=== PATIENT | female | born 1980 | race Caucasian/White ===

== ENCOUNTER 2017-05-09 04:32 | Emergency (ER) | payer MEDICAID | END 2017-05-09 05:15 | disposition home or self-care (01) | LOC: D.ER 04:32 | DX: K08.89 Other specified disorders of teeth and supporting structures (principal); R68.84 Jaw pain ==

== ENCOUNTER 2019-01-18 12:21 | Emergency (ER) | payer SELFPAY ==
[~2019-01-18] VITALS: Ht 160 cm; Wt 95.5 kg
[2019-01-18 12:40] VITALS: Ht 160 cm; Wt 95.5 kg
[2019-01-18] MEDS ORDERED: CORTISPORIN OTI10 M1 LEFT EAR (14:20)
[2019-01-18] MEDS ORDERED: AUGMENTIN 875-11 TAB PO (14:20)
[2019-01-18 14:37] VITALS: BP 114/74
== END 2019-01-18 14:38 | disposition home or self-care (01) ==
LOC: D.ER 12:21
DX: T63.301A Toxic effect of unspecified spider venom, accidental (unintentional), initial encounter (principal); E87.6 Hypokalemia

== ENCOUNTER 2019-01-27 10:24 | Emergency (ER) | payer SELFPAY ==
[~2019-01-27] VITALS: Ht 160 cm; Wt 94.8 kg
[~2019-01-27 10:24] MED LIST: AUGMENTIN 875-11 TAB PO; CORTISPORIN OTI10 M1 LEFT EAR
[2019-01-27 10:32] VITALS: Ht 160 cm; Wt 94.8 kg
[2019-01-27 13:06] LABS: BASOPHILS 0.2 % (0-2); EOSINOPHILS 3.2 % (0-7); HEMATOCRIT 31.6 % (36.0-48.0); HEMOGLOBIN 10.1 g/dL (12-16); IMMATURE GRANULOCYTES 0.2 % (0-5); LYMPHOCYTES 28.1 % (15-50); MCH 24.6 pg (26.0-34.0); MCV 77.1 fL (80.0-100.0); MEAN PLATELET VOLUME 9.9 fL (7.4-10.4); MONOCYTES 6.2 % (2-11); NEUTROPHILS 62.1 % (40-80); PLATELET COUNT 235 10x3/uL (130-400); RDW 14.8 % (11.5-14.5); WBC 5.6 10x3/uL (4.8-10.8)
[2019-01-27 13:18] LABS: ALBUMIN 3.3 g/dL (3.4-5.0); ALKALINE PHOSPHATASE 65 U/L (46-116); ALT (SGPT) 35 U/L (10-68); BILIRUBIN - TOTAL 0.42 mg/dL (0.2-1.3); CALC OSMOLALITY 277 mosm/kg (275-300); CALCIUM 8.4 mg/dL (8.5-10.1); CARBON DIOXIDE 25.5 mmol/L (21.0-32.0); CHLORIDE - SERUM 105 mmol/L (98-107); CREATININE - SERUM 0.5 mg/dL (0.6-1.3); GLUCOSE 86 mg/dL (74-106); POTASSIUM - SERUM 3.3 mmol/L (3.5-5.1); PROTEIN - SERUM 7.3 g/dL (6.4-8.2); SODIUM 140 mmol/L (136-145); UREA NITROGEN 12 mg/dL (7-18); eGFR NON AFRICAN AMERICAN > 90 mL/min (90-120)
[2019-01-27] MEDS ORDERED: ATARAX 25 MG TA25 MG PO (14:13)
[2019-01-27] MEDS ORDERED: TORADOL10 MG PO (14:14)
[2019-01-27 14:56] VITALS: BP 105/59
== END 2019-01-27 14:57 | disposition home or self-care (01) ==
LOC: D.ER 10:24
PROVIDERS: Emergency Medicine
DX: T63.301A Toxic effect of unspecified spider venom, accidental (unintentional), initial encounter (principal); E87.6 Hypokalemia; R23.3 Spontaneous ecchymoses

== ENCOUNTER 2019-12-29 02:17 | Emergency (ER) | payer BC ==
[~2019-12-29] VITALS: Ht 160 cm; Wt 100.0 kg
[~2019-12-29 02:17] MED LIST changes: +ATARAX 25 MG TA25 MG PO; +TORADOL10 MG PO
[2019-12-29 02:21] VITALS: Ht 160 cm; Wt 100.0 kg
[2019-12-29 02:52] LABS: BASOPHILS 0.3 % (0-2); EOSINOPHILS 1.6 % (0-7); HEMATOCRIT 36.5 % (36.0-48.0); HEMOGLOBIN 11.4 g/dL (12-16); IMMATURE GRANULOCYTES 0.2 % (0-5); LYMPHOCYTES 45.2 % (15-50); MCH 25.2 pg (26.0-34.0); MCHC 31.2 g/dL (31.0-37.0); MCV 80.8 fL (80.0-100.0); MEAN PLATELET VOLUME 9.5 fL (7.4-10.4); MONOCYTES 7.8 % (2-11); NEUTROPHILS 44.9 % (40-80); RBC 4.52 10x6/uL (4.00-5.40); RDW 13.4 % (11.5-14.5); WBC 6.3 10x3/uL (4.8-10.8)
[2019-12-29 02:55] LABS: PLATELET COUNT 305 10x3/uL (130-400)
[2019-12-29 03:03] LABS: CALC OSMOLALITY 279 mosm/kg (275-300); CALCIUM 9.3 mg/dL (8.5-10.1); CARBON DIOXIDE 29.3 mmol/L (21.0-32.0); CHLORIDE - SERUM 104 mmol/L (98-107); CREATININE - SERUM 0.6 mg/dL (0.6-1.3); GLUCOSE 117 mg/dL (74-106); POTASSIUM - SERUM 3.7 mmol/L (3.5-5.1); SODIUM 139 mmol/L (136-145); UREA NITROGEN 16 mg/dL (7-18); eGFR NON AFRICAN AMERICAN > 90 mL/min (90-120)
[2019-12-29 03:09] LABS: ALBUMIN 3.3 g/dL (3.4-5.0); ALKALINE PHOSPHATASE 81 U/L (30-120); ALT (SGPT) 45 U/L (10-68); BILIRUBIN - TOTAL 0.29 mg/dL (0.2-1.3); PROTEIN - SERUM 7.3 g/dL (6.4-8.2)
[2019-12-29 03:27] LABS: MAGNESIUM - SERUM 1.7 mg/dL (1.8-2.4)
[2019-12-29] MEDS ORDERED: PROAIR HFA8.5 G1 INH (04:28)
[2019-12-29 05:53] VITALS: BP 139/68
== END 2019-12-29 05:54 | disposition home or self-care (01) ==
LOC: D.ER 02:17
PROVIDERS: Family Medicine
DX: J06.9 Acute upper respiratory infection, unspecified (principal); R51 Headache